=== PATIENT | female | born 1975 | race Caucasian/White ===

== ENCOUNTER 2017-01-27 04:16 | Emergency (ER) | payer OTHER ==
[2017-01-27 04:42] VITALS: BMI 29.9
[2017-01-27] MEDS ORDERED: SODIUM CHLORIDE 1,000 ML IV STA ×2 (04:46→06:40)
[2017-01-27] MEDS ORDERED: ONDANSETRON 4 MG/2 ML VIAL IVPUSH ONE (04:46)
--- NOTE | 2017-01-27 05:01 | PDOC ---
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 Patient states around 7pm last night, she was feeling depressed and took an unknown amount of Lamictal 25mg. Pharmacy ([facility]) contacted; 30 tabs of Lamictal dispense as well as Latuda 20mg and Seroquel 100mg. Patient reports having a history of suicidal ideations/attempts in past. She denies any other complaints at this time. LNMP: January 22. Timing/Duration: yesterday Episode Description: See HPI Associated Symptoms: anxiety, ingestion, suicidal ideation, other (Depression) Past History - Past Medical History Allergies/Adverse Reactions: Allergies No Known Allergies Allergy (Verified 01/27/17 04:42) Home Medications: Ambulatory Orders No Home Medications 0 dose .ROUTE UTDICT 08/20/12 Ibuprofen [Motrin] 800 mg PO TID #30 tablet 09/15/15 Sulfamethoxazole/Trimethoprim [Bactrim *Ds*] 1 tab PO BID #20 tablet 09/15/15 - Immunization History Immunization Up to Date: Yes Tetanus Status: Less than 5 years - Social History Smoking History: Yes Smoking Status: Never smoked Number of Cigarettes Per Day: 10 *Review of Systems - Review of Systems Able to Perform ROS?: Yes Constitutional: No: Chills, Fever Cardiac (ROS): No: Chest Pain, Lightheadedness, Palpitations, Syncope, Chest Tightness ABD/GI: No: Abdominal Distended, Constipated, Diarrhea, Nausea, Poor Appetite, Poor Fluid Intake, Vomiting, Indigestion, Abdominal cramping : No: Burning, Dysuria, Flank Pain, Hematuria, Pain Musculoskeletal: No: Back Pain Integumentary: No: Bruising, Erythema Neurological: No: Headache, Numbness, Seizure, Tingling, Tremors, Weakness, Ataxia, Dizziness Psychiatric: Yes: Anxiety, Depression, Frequent Crying, Other (Suicidal Ideation , Intentional ingestion) All Other Systems: Reviewed and Negative *Physical Exam - Vital Signs Last Vital Signs Temp Pulse Resp BP Pulse Ox 110 H 18 108/98 100 01/27/17 04:39 01/27/17 04:39 01/27/17 04:39 01/27/17 04:39 - Physical Exam General Appearance: Yes: Nourished, Appropriately Dressed. No: Apparent Distress, Mild Distress, Moderate Distress, Severe Distress Neck: positive: Trachea midline, Normal Thyroid, Supple. negative: Rigid, Decreased range of motion, Stridor, Lymphadenopathy (R), Lymphadenopathy (L) Respiratory/Chest: positive: Lungs Clear, Normal Breath Sounds. negative: Chest Tender, Respiratory Distress, Accessory Muscle Use, Labored Respiration, Rapid RR, Crackles, Rales, Stridor, Wheezing Cardiovascular: positive: Regular Rhythm, Regular Rate Gastrointestinal/Abdominal: positive: Normal Bowel Sounds, Soft. negative: Tender, Decreased BS, Distended, Guarding, Rebound, Tenderness Musculoskeletal: positive: Normal Inspection. negative: CVA Tenderness Extremity: positive: Normal Capillary Refill, Normal Inspection, Normal Range of Motion. negative: Tender, Pedal Edema, Swelling, Calf Tenderness, Erythema, Inflammation Integumentary: positive: Normal Color, Dry, Warm Neurologic: positive: outcomes analyst II-XII NML intact, Fully Oriented, Alert, Normal Mood/ Affect, Normal Response, Motor Strength 5/5 Plan - Order(s) Order(s): Orders last 12 hours Category Date Time Status ELECTROCARDIOGRAM [CARD] Stat Cardiology 01/27/17 04:46 Ordered ACTIVATED PTT Stat Lab 01/27/17 04:46 Ordered CBC WITH DIFFERENTIAL Stat Lab 01/27/17 04:46 Ordered DRUG SCREEN,UR ER- [facility] Stat Lab 01/27/17 04:46 Ordered HCG,QUALITATIVE URINE Stat Lab 01/27/17 04:46 Ordered PT/INR (PROTHROMBIN TIME) Stat Lab 01/27/17 04:46 Ordered URINALYSIS Stat Lab 01/27/17 04:46 Ordered Medical Decision Making - Medical Decision Making 01/27/17 05:01 Poison Control Contacted: Monitor for Q-T prolongation. Lamictal is a benign drug. If patient labs WNL, she can be cleared for evaluation.
[2017-01-27] MEDS ORDERED: ONDANSETRON 4 MG/2 ML VIAL ONE (05:04)
[2017-01-27 05:06] LABS: BASOPHIL 0.5 % (0-2.0); EOSINOPHIL 2.7 % (0-4.5); MCH 26.2 pg (25.7-33.7); MCHC 32.7 g/dl (32.0-36.0); MEAN CELL VOLUME 80.1 fl (80-96); MEAN PLT VOLUME 8.6 fl (7.5-11.1); NEUTROPHILS 60.7 % (42.8-82.8); PLATELET COUNT 284 K/MM3 (134-434); RDW 14.5 % (11.6-15.6); WHITE BLOOD COUNT 6.6 K/mm3 (4.0-10.0)
[2017-01-27 05:30] LABS: ALBUMIN 3.8 g/dl (3.4-5.0); ANION GAP 9 (8-16); BILIRUBIN,TOTAL 0.2 mg/dL (0.2-1.0); CALCIUM 8.7 mg/dL (8.5-10.1); CO2 23 mmol/L (21-32); CREATININE 0.8 mg/dL (0.55-1.02); GLUCOSE,RANDOM 110 mg/dL (74-106); MAGNESIUM 2.1 mg/dL (1.8-2.4); SGOT/AST 25 U/L (15-37); SGPT/ALT 24 U/L (12-78); TOT PROT 7.8 g/dl (6.4-8.2)
[2017-01-27 05:39] LABS: ALK PHOS 84 U/L (45-117); THYROID STIMULATING HORMONE 4.75 uIU/ml (0.358-3.74); TROPONIN I < 0.02 ng/ml (0.00-0.05)
[2017-01-27 06:06] LABS: INR 1.05 (0.82-1.09); PROTHROMBIN TIME (PATIENT) 11.6 SEC (9.98-11.88)
[2017-01-27 06:27] LABS: SALICYLATE < 4.0 mg/dl (0.0-30.0)
--- NOTE | 2017-01-27 07:29 | PDOC ---
*Physical Exam - Vital Signs Last Vital Signs Temp Pulse Resp BP Pulse Ox 97.7 F 92 H 18 107/71 100 01/27/17 04:21 01/27/17 06:33 01/27/17 06:33 01/27/17 06:33 01/27/17 06:33 ED Treatment Course - LABORATORY CBC & Chemistry Diagram: 01/27/17 04:50 01/27/17 04:50 - ADDITIONAL ORDERS Additional order review: Laboratory Results 01/27/17 01/27/17 01/27/17 04:50 04:50 04:50 INR 1.05 PTT (Actin FS) Sodium Potassium Chloride Carbon Dioxide Anion Gap BUN Creatinine Creat Clearance w eGFR Random Glucose Lactic Acid 2.2 H* Calcium Magnesium Total Bilirubin AST ALT Alkaline Phosphatase Creatine Kinase Creatine Kinase Index CK-MB (CK-2) Troponin I Total Protein Albumin TSH Salicylates < 4.0 Acetaminophen < 11.0 01/27/17 01/27/17 04:50 04:50 INR PTT (Actin FS) 29.1 Sodium 140 Potassium 4.0 Chloride 108 H Carbon Dioxide 23 Anion Gap 9 BUN 7 Creatinine 0.8 D Creat Clearance w eGFR > 60 Random Glucose 110 H Lactic Acid Calcium 8.7 Magnesium 2.1 Total Bilirubin 0.2 D AST 25 D ALT 24 D Alkaline Phosphatase 84 Creatine Kinase 160 Creatine Kinase Index 1.3 CK-MB (CK-2) 2.041 Troponin I < 0.02 Total Protein 7.8 Albumin 3.8 TSH 4.75 H Salicylates Acetaminophen 01/27/17 04:50 RBC 4.71 MCV 80.1 MCHC 32.7 RDW 14.5 MPV 8.6 Neutrophils % 60.7 Lymphocytes % 30.0 Monocytes % 6.1 Eosinophils % 2.7 Basophils % 0.5 - Medications Given in the ED: ED Medications Discontinued Medications Generic Name Dose Route Start Last Admin Trade Name Freq PRN Reason Stop Dose Admin Sodium Chloride 1,000 mls @ 1,000 mls/hr 01/27/17 04:46 01/27/17 05:01 Normal Saline - IV 01/27/17 05:45 1,000 mls/hr ASDIR STA Administration Ondansetron HCl 4 mg 01/27/17 04:46 01/27/17 05:06 Zofran Injection IVPUSH 01/27/17 04:47 4 mg ONCE ONE Administration Medical Decision Making - Medical Decision Making 01/27/17 09:24 Signout received from PIPPA Barreto. Briefly, this is a 41 year old female with a history of anxiety/depression on Lamictal/Seroquel/Latuda who presented with suicidal ideation and reported taking an unknown quantity of Lamictal at home. Per Poison Control, no interventions are needed apart from checking electrolytes and QTc. Workup so far is notable for: -EKG: NSR with QTc 447 (normal range for women) -Lactic acid mildly elevated at 2.2- fluids given, will repeat -Psych evaluation is pending Patient is on 1:1 observation. 01/27/17 14:53 Patient alert, oriented, tolerating PO. Offers no complaints. Seen by psychiatry and cleared for discharge. Plans to follow up with psychiatrist at [facility] [place] tomorrow. Return precautions reviewed. *DC/Admit/Observation/Transfer Diagnosis at time of Disposition: Drug overdose Qualifiers: Encounter type: initial encounter Injury intent: intentional self-harm Qualified Code(s): T50.902A - Poisoning by unspecified drugs, medicaments and biological substances, intentional self-harm, initial encounter - Discharge Dispostion Disposition: HOME Condition at time of disposition: Stable Admit: No - Referrals Referrals: Gianni Clement MD [Primary Care Provider] - - Patient Instructions Printed Discharge Instructions: DI for Drug Overdose in Adults Additional Instructions: Follow up with your psychiatrist tomorrow as discussed. Return here for suicidal thoughts or any other concerning symptoms.
--- NOTE | 2017-01-27 09:12 | EKG ---
Test Reason : Blood Pressure : / mmHG Vent. Rate : 095 BPM Atrial Rate : 095 BPM P-R Int : 176 ms QRS Dur : 086 ms QT Int : 356 ms P-R-T Axes : 055 069 036 degrees QTc Int : 447 ms NORMAL SINUS RHYTHM NORMAL ECG WHEN COMPARED WITH ECG OF 20-AUG-2012 13:57, NO SIGNIFICANT CHANGE WAS FOUND Confirmed by JACKSON CASTELLANOS MD ([id number]) on 01/27/2017 9:11:48 AM Referred By: Confirmed By:JACKSON CASTELLANOS MD
[2017-01-27 11:29] LABS: URINE APPEARANCE CLEAR; URINE BILIRUBIN NEGATIVE (NEGATIVE); URINE BLOOD NEGATIVE (NEGATIVE); URINE COLOR LTYELLOW; URINE GLUCOSE (UA) NEGATIVE (NEGATIVE); URINE KETONE TRACE (NEGATIVE); URINE LEUK ESTERASE NEGATIVE (NEGATIVE); URINE NITRITE NEGATIVE (NEGATIVE); URINE PROTEIN NEGATIVE (NEGATIVE); URINE UROBILINOGEN NEGATIVE mg/dL (0.2-1.0)
[2017-01-27] MEDS ORDERED: ACETAMINOPHEN 325 MG TABLET (FP) ONE (11:45)
[2017-01-27 11:52] LABS: URINE MARIJUANA THC NEGATIVE ng/ml (CUTOFF=50)
--- NOTE | 2017-01-27 14:51 | CON.PSY ---
Psychiatry Consult Chief Complaint: I was feeling bad but I am ok now. I wany to see my doctor tomorrow at [facility]. - Previous Psychiatric Treatment Outpatient: Less than 6 mos ago Inpatient: Within the last 12 months - Previous Substance Abuse Treatment Outpatient: None Inpatient: None - Reason for Previous Treatment Reason for Previous Treatment: Major Depression - Allergies Allergies: Allergies Allergy/AdvReac Type Severity Reaction Status Date / Time No Known Allergies Allergy Verified 01/27/17 04:42 - Current Living Status Usual Living Arrangement: With Child - Current Mental Status Evaluation Appearance: Well Groomed Attitude: Cooperative - Affect Affect: Constrictive Appropriateness: Appropriate to Content - Mood Mood: Anxious - Speech/Language Expressive: Coherent Receptive: Age Appropriate Comprehension of Spoken Words - Psychomotor Activity Psychomotor Activity: Slowed - Thought Process Thought Process: Intact - Thought Content Hallucinations: Absent Delusions: Absent - Self Perception Self Perception: No Impairment - Cognition Attention: Alert Orientation: Time Memory, Immediate Recall: Intact Memory, Short Term: 3/3 Memory, Remote with Promptin/3 - Concentration Serial Sevens Intact: No Simple Calculations Intact: No - Abstraction Proverb Interpretation: Intact Judgement: Minimally Impaired - Insight Insight: Intact - Impulse Control Impulse Control: Minimally Impaired - Suicidal Ideation Suicidal Ideation: Yes Plan: No plans now, actually feels 0k now. - Homicidal Ideation Homicidal Ideation: No Assessment/Plan 12) Patient no longer is acutely suicidal at tyhis time. 2) Discharge when medical;ly stable. 3) Followe up at [email or web address] on 01/28.
[2017-01-27 15:08] VITALS: BP 110/74; PULSE 80; TEMP 98.6
== END 2017-01-27 15:03 | disposition home or self-care (01) ==
LOC: JER 04:16
DX: T42.6X2A Poisoning by other antiepileptic and sedative-hypnotic drugs, intentional self-harm, initial encounter (principal); Y92.038 Other place in apartment as the place of occurrence of the external cause; F41.8 Other specified anxiety disorders
CPT/HCPCS: 36415; 80053; 80307; 81003; 82550; 82553; 83605; 83735; 84443; 84484; 84703; 85025; 85610; 85730; 87086; 93005; 93010; 99284-25

== ENCOUNTER 2018-04-21 22:26 | Emergency (ER) | payer SELFPAY ==
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
[2018-04-21 22:57] VITALS: TEMP 98.1; BMI 26.6
[2018-04-21] MEDS ORDERED: SODIUM CHLORIDE 1,000 ML IV STA (23:05)
[2018-04-21] MEDS ORDERED: DIPHTH,PERTUSS(ACELL),TET 0.5 ML DISP.SYRIN IM ONE (23:08)
[2018-04-21] MEDS ORDERED: BACITRACIN 15 GM TUBE TOPICAL OINTMENT TP ONE (23:22)
[2018-04-21] MEDS ORDERED: BACITRACIN 0.9 GM PACKET ONE (23:59)
[2018-04-22 01:29] LABS: HEMATOCRIT 36.3 % (32.4-45.2); HEMOGLOBIN 11.4 GM/dL (10.7-15.3); MCH 23.6 pg (25.7-33.7); MCHC 31.5 g/dl (32.0-36.0); MEAN CELL VOLUME 74.9 fl (80-96); MEAN PLT VOLUME 8.7 fl (7.5-11.1); PLATELET COUNT 369 K/MM3 (134-434); RBC 4.85 M/mm3 (3.60-5.2); RDW 15.2 % (11.6-15.6); WHITE BLOOD COUNT 6.3 K/mm3 (4.0-10.0)
[2018-04-22 01:54] LABS: ALBUMIN 3.8 g/dl (3.4-5.0); ALK PHOS 62 U/L (45-117); ANION GAP 9 MMOL/L (8-16); BILIRUBIN,TOTAL 0.3 mg/dL (0.2-1); BLOOD UREA NITROGEN 6 mg/dL (7-18); CHLORIDE 112 mmol/L (98-107); CO2 22 mmol/L (21-32); CREATININE 0.6 mg/dL (0.55-1.3); GLUCOSE,RANDOM 102 mg/dL (74-106); POTASSIUM 4.4 mmol/L (3.5-5.1); SGOT/AST 14 U/L (15-37); SGPT/ALT 14 U/L (13-61); SODIUM 144 mmol/L (136-145); TOT PROT 7.9 g/dl (6.4-8.2)
[2018-04-22 06:48] VITALS: BP 118/72; PULSE 80
== END 2018-04-22 06:59 | disposition home or self-care (01) ==
LOC: JER 22:26
DX: S00.81XA Abrasion of other part of head, initial encounter (principal); W10.8XXA Fall (on) (from) other stairs and steps, initial encounter; Y93.89 Activity, other specified; Y92.89 Other specified places as the place of occurrence of the external cause; Y99.8 Other external cause status; Y04.2XXA Assault by strike against or bumped into by another person, initial encounter; F32.9 Major depressive disorder, single episode, unspecified
CPT/HCPCS: 36415; 70450-TC; 70486-TC; 72125-TC; 80053; 80307; 84703; 85027; 87389; 99282-25

== ENCOUNTER 2018-11-14 07:18 | Emergency (ER) | payer SELFPAY ==
[2018-11-14 07:34] VITALS: BMI 29.9
--- NOTE | 2018-11-14 08:01 | PDOC ---
History of Present Illness - General Chief Complaint: Psychiatric Stated Complaint: DEPRESSION Time Seen by Provider: 11/14/18 08:00 - History of Present Illness Initial Comments: 11/14/18 08:22 Patient is a 43 year old female with history of anxiety, depression presents with suicidal ideation. She says that she is: "sad, and scared that she will do something bad". She currently admits suicidal ideation (patient does not describe plan), denies homicidal ideation. Symptoms have been worsening over the past three months. Patient states that she stopped taking her psychiatric medications one year ago as they were not working for her (does not recall the name of her past medications; but per chart review she was taking Lamictal, Seroquel, Latuda in 2017). She endorses that she last saw her psychiatrist two years ago (does not recall name of psychiatrist). Patient admits that she is amenable to therapy, and repeatedly requests "medications". Admits drinking four glasses of wine yesterday. Denies illicit drug use. She denies subjective fevers, chills, shortness of breath, chest pain, palpitations, abdominal pain, nausea, vomiting, dysuria, hematuria, melena, hematochezia. PMH: depression, anxiety PSH: denies Social history: smokes 10 [place] cigarettes/ day for past two years. Admits last alcoholic drink yesterday (does not endorse regular ETOH use). Denies illicit drug use. 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 Past History - Travel Traveled outside of the country in the last 30 days: No - Past Medical History Allergies/Adverse Reactions: Allergies Allergy/AdvReac Type Severity Reaction Status Date / Time No Known Allergies Allergy Verified 11/14/18 07:21 Home Medications: Ambulatory Orders Unobtainable 04/22/18 Anemia: Yes COPD: No Psychiatric Problems: Yes (depression) - Immunization History Immunization Up to Date: Yes - Suicide/Smoking/Psychosocial Hx Smoking Status: Yes Smoking History: Current every day smoker Have you smoked in the past 12 months: Yes Number of Cigarettes Smoked Daily: 10 Information on smoking cessation initiated: No Hx Alcohol Use: Yes Drug/Substance Use Hx: No Substance Use Type: None Review of Systems - Review of Systems Able to Perform ROS?: Yes Constitutional: Yes: Malaise, Weakness HEENTM: Yes: Tearing. No: Throat Pain, Throat Swelling Respiratory: No: Cough, Shortness of Breath, Stridor, Wheezing Cardiac (ROS): No: Chest Pain, Palpitations ABD/GI: No: Blood Streaked Bowels, Nausea, Vomiting : No: Dysuria, Discharge, Hematuria Musculoskeletal: Yes: Muscle Weakness Neurological: Yes: Headache Psychiatric: Yes: Anxiety, Depression, Other (admits suicidal ideation) *Physical Exam - Vital Signs Last Vital Signs Temp Pulse Resp BP Pulse Ox 98.1 F 95 H 16 122/86 100 11/14/18 07:21 11/14/18 07:21 11/14/18 07:21 11/14/18 07:21 11/14/18 07:21 - Physical Exam General Appearance: Yes: Nourished, Disheveled, Mild Distress HEENT: positive: EOMI, BRENNON. negative: Scleral Icterus (R), Scleral Icterus (L) , Pharyngeal Erythema, Tonsillar Exudate Neck: positive: Trachea midline, Supple. negative: Lymphadenopathy (R), Lymphadenopathy (L), Thyromegaly Respiratory/Chest: positive: Lungs Clear, Normal Breath Sounds. negative: Respiratory Distress, Accessory Muscle Use, Crackles, Rhonchi, Stridor, Wheezing Cardiovascular: positive: Regular Rhythm, Regular Rate, S1, S2. negative: Edema , Murmur Gastrointestinal/Abdominal: positive: Normal Bowel Sounds, Flat, Soft. negative : Organomegaly, Rebound, Tenderness Extremity: positive: Normal Range of Motion Neurologic: positive: Alert, Responsive (slow t orespond), Depressed Affect ED Treatment Course - LABORATORY CBC & Chemistry Diagram: 11/14/18 09:56 11/14/18 09:56 Medical Decision Making - Medical Decision Making 11/14/18 09:22 Patient is 43 year old female with history of depression, presenting with suicidal ideation. 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 Rangel Per RN patient endorses questionable head trauma; denies trauma to any part of her body. No loss of consciousness. Will obtain noncontrast CT head. Second call placed to Dr. Rangel 10:30 AM 11/14/18 11:13 CT head negative for acute intracranial pathology. EKG shows normal sinus rhythm at 83BPM. QTc 455msec. Utox negative. Blood alcohol 164. Patient clinically sober. Patient CIWA currently 0-1; resting comfortably in exam bed. Will monitor closely for signs of withdrawal, initiate Librium protocol if CIWA rising. Third call placed to Dr. Rangel 11:30 AM 11/14/18 12:20 Call returned; Case discussed with Dr. Rangel who will evaluate the patient 11/14/18 14:07 Dr. Rangel evaluated the patient. Patient cleared for discharge home, with psychiatry follow up. Contact information provided to patient. 11/14/18 14:18 Discussed follow up recommendations with patient at bedside who verbalizes understanding and agreement with the plan. All questions, concerns addressed and answered. *DC/Admit/Observation/Transfer Diagnosis at time of Disposition: MDD (major depressive disorder) - Discharge Dispostion Disposition: HOME Condition at time of disposition: Stable Decision to Admit order: No - Referrals Referrals: Nagi Evans MD [Primary Care Provider] - - Patient Instructions Printed Discharge Instructions: DI for Depression -- Adult Additional Instructions: You were seen in the Emergency Department for complaint of depression, You were evaluated by the psychiatrist, and are cleared for discharge home. It is important that you follow up with your primary care physician, and psychiatrist upon discharge. You may follow up with mental health professionals at: [address] [address] [email or web address] Return to the nearest Emergency Department of you experience worsening symptoms or any suicidal, homicidal ideation, hallucinations, paranoia, delusions, or any intrusive thoughts. Print Language: ITALIAN - Post Discharge Activity Forms/Work/School Notes: My Personal Safety Plan
--- NOTE | 2018-11-14 08:35 | PDOC ---
Attending Attestation - Resident Resident Name: Ryan Sexton - ED Attending Attestation I have performed the following: I have examined & evaluated the patient, The case was reviewed & discussed with the resident, I agree w/resident's findings & plan - [facility] HPI: 11/14/18 09:29 Patient is a 43 year old female with history of anxiety, depression presents with worsening depression and sadness x 3 months, now with suicidal ideation. She states that she is: "sad, and scared that she will do something bad". Of note, she banged her head repeatedly this morning. Patient endorses that she has not been taking her psychiatric medications for the past year. Lamictal/Seroquel/Latuda Not seen psych or PMD x 2 years; she admits to drinking 4 cups of wine today, but denies coingestants of OTC meds.. - Physicial Exam PE: 11/14/18 09:29 Agree with the resident's HPI and PE as documented in the electronic medical record. NAD, well appearing, PERRL, EOMI, MMM, nl conjunctiva, anicteric; neck supple. lungs clear, RRR, abdomen soft nontender. NOGUEIRA x4, no focal neuro deficits. No peripheral edema. normal color for ethnicity, WWP. +blunted affect and mood +SI, +depressed. - Medical Decision Making 11/14/18 08:34 See HPI for details Vital signs reviewed, wnl. Prior notes reviewed, including admissions, discharges and consultations. laboratory results and imaging reviewed, basic labs and lytes wnl UA_neg tox screen, neg preg test. +etoh, but clinically sober EKG normal sinus rhythm, no interval abnormalities, narrow QRS, ST and T wave segments and morphology normal. 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 ED course - 1:1 observation. - incident report for SI/depression; no tox ingestants, acute on chronic presentation. - awaiting psych cs, Dr Ranegl control officer will come to evaluate - ED observation in the meantime. - Dr Rangel came to eval pt at 1400: dc'd on 1:1, can be followed up as outpatient for her depression, referral for mental health clinic in region given cleared from psych standpoint, no acute SI or acute psych emergency. referral given and safety plan. 11/14/18 14:18 Heart Score/ECG Review #1 ECG reviewed & interpreted by me at: 08:55 General ECG Interpretation: Sinus Rhythm, Normal Rate, Normal Intervals Compared to previous ECG there are: No significant change 11/14/18 09:34 EKG normal sinus rhythm, no interval abnormalities, narrow QRS, ST and T wave segments and morphology normal.
[2018-11-14 09:47] LABS: URINE AMPHETAMINES NEGATIVE ng/ml (CUTOFF=500)
[2018-11-14 09:48] LABS: COCAINE, UR NEGATIVE ng/ml (CUTOFF=300); METHADONE, UR NEGATIVE ng/ml (CUTOFF=300); OPIATES, URI NEGATIVE ng/ml (CUTOFF=300); PHENCYCLIDINE,URINE NEGATIVE ng/ml (CUTOFF=25); URINE BARBITURATES NEGATIVE ng/ml (CUTOFF=200); URINE BENZODIAZEPINES NEGATIVE ng/ml (CUTOFF=200)
[2018-11-14 09:52] LABS: HCG,QUALITATIVE URINE Negative
[2018-11-14 10:08] LABS: HEMATOCRIT 32.7 % (32.4-45.2); HEMOGLOBIN 10.6 GM/dL (10.7-15.3); MCH 24.9 pg (25.7-33.7); MCHC 32.5 g/dl (32.0-36.0); MEAN CELL VOLUME 76.6 fl (80-96); MEAN PLT VOLUME 8.2 fl (7.5-11.1); PLATELET COUNT 284 K/MM3 (134-434); RBC 4.27 M/mm3 (3.60-5.2); RDW 15.8 % (11.6-15.6)
[2018-11-14 10:23] LABS: URINE APPEARANCE Clear; URINE BILIRUBIN Negative (NEGATIVE); URINE COLOR Yellow; URINE GLUCOSE (UA) Negative (NEGATIVE); URINE KETONE Negative (NEGATIVE); URINE LEUK ESTERASE Negative (NEGATIVE); URINE NITRITE Negative (NEGATIVE); URINE PROTEIN Negative (NEGATIVE); URINE UROBILINOGEN 0.2 mg/dL (0.2-1.0)
[2018-11-14 10:36] LABS: ALBUMIN 3.2 g/dl (3.4-5.0); BILIRUBIN,TOTAL 0.2 mg/dL (0.2-1); CALCIUM 8.4 mg/dL (8.5-10.1); CREATININE 0.5 mg/dL (0.55-1.3); TOT PROT 6.5 g/dl (6.4-8.2)
--- NOTE | 2018-11-14 11:40 | EKG ---
Test Reason : Blood Pressure : / mmHG Vent. Rate : 083 BPM Atrial Rate : 083 BPM P-R Int : 174 ms QRS Dur : 086 ms QT Int : 388 ms P-R-T Axes : 049 059 033 degrees QTc Int : 455 ms NORMAL SINUS RHYTHM NORMAL ECG WHEN COMPARED WITH ECG OF 27-JAN-2017 04:46, NO SIGNIFICANT CHANGE WAS FOUND Confirmed by JACKSON CASTELLANOS MD ([id number]) on 11/14/2018 11:40:05 AM Referred By: Confirmed By:JACKSON CASTELLANOS MD
--- NOTE | 2018-11-14 14:10 | CON.PSY ---
Psychiatry Consult Chief Complaint: 43 Year old female who lived with Mother came to [place] . reports feeling depressed and has been drinking and felt afraid of doing some thing that might hurt her. Patient sobered up and denies any suicidal ide4as or plans at this time. She wants to go to a clinic in [facility]. Has been going to [facility] but does not like the clinic. Symptoms: reports: Depressed Mood - Previous Psychiatric Treatment Outpatient: More than 6 mos ago Inpatient: None - Previous Substance Abuse Treatment Outpatient: None Inpatient: None - Reason for Previous Treatment Reason for Previous Treatment: Major Depression - Allergies Allergies: Allergies Allergy/AdvReac Type Severity Reaction Status Date / Time No Known Allergies Allergy Verified 11/14/18 07:21 - Current Living Status Usual Living Arrangement: With Parent - Current Mental Status Evaluation Appearance: Well Groomed Attitude: Cooperative - Affect Affect: Constrictive Appropriateness: Not Appropriate - Mood Mood: Anxious - Speech/Language Expressive: Coherent - Psychomotor Activity Psychomotor Activity: Normal - Thought Process Thought Process: Intact - Thought Content Hallucinations: Absent Delusions: Absent - Self Perception Self Perception: No Impairment - Cognition Attention: Alert Orientation: Time Memory, Immediate Recall: Intact Memory, Short Term: 3/3 Memory, Remote with Promptin/3 - Concentration Serial Sevens Intact: No Simple Calculations Intact: Yes - Abstraction Proverb Interpretation: Intact Judgement: Minimally Impaired - Insight Insight: Intact - Impulse Control Impulse Control: Minimally Impaired - Suicidal Ideation Suicidal Ideation: No - Homicidal Ideation Homicidal Ideation: No Assessment/Plan 1) d/c 1:1. 2) Discharge [facility] when stable, 3) refer to Mental clinics in [place]. PaTIENT WILL CALL.
[2018-11-14 14:36] VITALS: BP 112/74; PULSE 81; TEMP 97.9
== END 2018-11-14 14:40 | disposition home or self-care (01) ==
LOC: JER 07:18
DX: F32.9 Major depressive disorder, single episode, unspecified (principal); F17.210 Nicotine dependence, cigarettes, uncomplicated; D64.9 Anemia, unspecified
CPT/HCPCS: 36415; 70450-TC; 80053; 80307; 81003; 84703; 85027; 93005; 93010; 99284-25

== ENCOUNTER 2020-04-20 13:02 | Emergency (ER) | payer OTHER ==
[2020-04-20 13:32] VITALS: BP 124/77; PULSE 86; TEMP 98.4; BMI 29.9
--- OUTSIDE RECORDS SUMMARY | 2020-04-20 13:46 | XMS ---
:1975 Author Organization [facility] Support Name Relationship Address Phone EDDIE HANKS [address] [place] [address] UE Unavailable Unavailable Unavailable EMANUEL HANKS MOTHER [address] [place] [address] Re-disclosure Warning The records that you are about to access may contain information from federally- assisted alcohol or drug abuse programs. If such information is present, then the following federally mandated warning applies: This information has been disclosed to you from records protected by federal confidentiality rules (42 CFR part 2). The federal rules prohibit you from making any further disclosure of this information unless further disclosure is expressly permitted by the written consent of the person to whom it pertains or as otherwise permitted by 42 CFR part 2. A general authorization for the release of medical or other information is NOT sufficient for this purpose. The Federal rules restrict any use of the information to criminally investigate or prosecute any alcohol or drug abuse patient.The records that you are about to access may contain highly sensitive health information, the redisclosure of which is protected by Article 27-F of the [facility] Public Health law. If you continue you may haveaccess to information: Regarding HIV / AIDS; Provided by facilities licensed or operated by the [facility] Office of Mental Health; or Provided by the [facility] Office for People With Developmental Disabilities. If such information is present, then the following [facility] mandated warning applies: This information has been disclosed to you from confidential records which are protected by state law. State law prohibits you from making any further disclosure of this information without the specific written consent of the person to whom it pertains, or as otherwise permitted by law. Any unauthorized further disclosure in violation of state law may result in a fine or senior living sentence or both. A general authorization for the release of medical or other information is NOT sufficient authorization for further disclosure. Insurance Providers Payer name Policy type Policy ID Covered Covered republican's Policy P vivian / Coverage republican ID relationship to [employer] type [facility] [id number] SP [id number] C SELF PAY SP INSURANCE MEDICAID [id number] SP [id number] Dental [id number] S [id number] 200 [employer] [facility] Myron Vision [id number] S [id number] [facility] Medicaid [id number] S [id number] Regular Clinic Visit [facility] [id number] S [id number] [place] Medicaid
--- NOTE | 2020-04-20 14:38 | PDOC ---
History of Present Illness - General Chief Complaint: Vaginal Sxs Stated Complaint: BLOOD IN URINE Time Seen by Provider: 04/20/20 14:04 History Source: Patient Exam Limitations: Clinical Condition - History of Present Illness Travel History: No Initial Comments: 04/20/20 14:40 Patient with no significant past medical history present with complaint of 1 week history of feeling of ball in the right side of her vagina. Patient currently on her menstrual period started 4 days ago. Patient have an appointment with her LEASING PROPERTY MANAGER in 4 days. Denies any other symptoms Timing/Duration: reports: other (1 week) Past History - Medical History Allergies/Adverse Reactions: Allergies Allergy/AdvReac Type Severity Reaction Status Date / Time No Known Allergies Allergy Verified 04/20/20 13:30 Home Medications: Ambulatory Orders Ibuprofen 800 mg PO Q8H PRN #16 tablet 04/20/20 Mupirocin Ointment [Bactroban 2% Ointment -] 1 applic TP BID #1 tube 04/20/20 Sulfamethoxazole/Trimethoprim [Bactrim Ds -] 1 tab PO BID #14 tablet 04/20/20 Anemia: Yes COPD: No Psychiatric Problems: Yes (depression) - Reproductive History Is Patient Now?: No - Immunization History Immunization Up to Date: Yes - Psycho-Social/Smoking History Smoking Status: Yes Smoking History: Current every day smoker Have you smoked in the past 12 months: Yes Number of Cigarettes Smoked Daily: 20 Information on smoking cessation initiated: No - Substance Abuse Hx (Audit-C & DAST Scrn) How often the patient has a drink containing alcohol: Monthly or less Score: In Men: 4 or > Positive; In Women: 3 or > Positive: 1 Screen Result (Pos requires Nsg. Audit-10AR): Negative In the last yr the pt used illegal drug/Rx for NonMed reason: No Score: Yes response is considered Positive: 0 Screen Result (Positive result requires Nsg. DAST-10): Negative Review of Systems - Review of Systems Able to Perform ROS?: Yes Is the patient limited Korean proficient: No Constitutional: No: Chills, Fever, Malaise HEENTM: No: Symptoms Reported Respiratory: No: Symptoms reported Cardiac (ROS): No: Symptoms Reported ABD/GI: No: Symptoms Reported, Abdominal cramping : Yes: Symptoms Reported, See HPI, Other (vulva abscess). No: Burning, Dysuria, Discharge, Frequency Musculoskeletal: No: Symptoms Reported Integumentary: Yes: Symptoms Reported, Lumps (right side vulva abscess) Neurological: Yes: Symptoms reported All Other Systems: Reviewed and Negative *Physical Exam - Vital Signs Last Vital Signs Temp Pulse Resp BP Pulse Ox 98.4 F 86 18 124/77 100 04/20/20 13:30 04/20/20 13:30 04/20/20 13:30 04/20/20 13:30 04/20/20 13:30 - Physical Exam General Appearance: Yes: Nourished, Appropriately Dressed. No: Apparent Distress HEENT: positive: Normal ENT Inspection Neck: negative: Supple Respiratory/Chest: negative: Respiratory Distress, Accessory Muscle Use Female Pelvic Exam: positive: normal external exam, normal adnexa, vaginal bleeding, other (2 cm hard nonfluctuant abscess to right side of vulvar over labia majora with mild surrounding erythema of area of shaved skin. Small amount of dark blood in the vaginal vault consistent with menstrual period). negative: adnexal tenderness Gastrointestinal/Abdominal: positive: Normal Bowel Sounds, Flat. negative: Tender Musculoskeletal: positive: Normal Inspection Extremity: positive: Normal Inspection, Normal Range of Motion Integumentary: positive: Normal Color Neurologic: positive: Fully Oriented, Alert, Normal Mood/Affect, Normal Response, Motor Strength 5/5 Medical Decision Making - Medical Decision Making 04/20/20 14:41 Patient with no significant past medical history present with complaint of 1 week history of feeling of ball in the right side of her vagina. Patient currently on her menstrual period started 4 days ago. Patient have an appointment with her LEASING PROPERTY MANAGER in 4 days. Denies any other symptoms Exam significant for 2 cm hard nonfluctuant abscess to right side of vulvar over labia majora with mild surrounding erythema of area of shaved skin. Small amount of dark blood in the vaginal vault consistent with menstrual period. Patient in no acute distress. Discussed with patient abscess is not ready to be drained. Stable for discharge on Bactrim antibiotics p.o. and mupirocin topical cream for labial abscess with advised to do hot compresses and follow-up with LEASING PROPERTY MANAGER as scheduled Discharge - Discharge Information Problems reviewed: Yes Clinical Impression/Diagnosis: Vulvar abscess Condition: Stable Disposition: HOME - Admission No - Additional Discharge Information Prescriptions: Sulfamethoxazole/Trimethoprim [Bactrim Ds -] 1 tab PO BID #14 tablet Mupirocin Ointment [Bactroban 2% Ointment -] 1 applic TP BID #1 tube Ibuprofen 800 mg PO Q8H PRN #16 tablet PRN Reason: pain - Follow up/Referral Referrals: Nagi Evans MD [Primary Care Provider] - - Patient Discharge Instructions Patient Printed Discharge Instructions: DI for Vulvar Abscess Additional Instructions: Your pain is likely caused by vulvar abscess. Take prescribed medication as prescribed for pain and antibiotics and finish it. Follow-up with your LEASING PROPERTY MANAGER as scheduled next week. Es probable que caraballo dolor sea causado por un absceso vulvar. [place] los medicamentos recetados segn lo prescrito para el dolor y los antibiticos y termnelos. Сергей un seguimiento con caraballo gineclogo segn lo programado la prxima semana. Print Language: IRISH - Post Discharge Activity
== END 2020-04-20 14:43 | disposition home or self-care (01) ==
LOC: JER 13:02
DX: N76.4 Abscess of vulva (principal)
CPT/HCPCS: 99282-25

== ENCOUNTER 2021-07-25 11:31 | Emergency (ER) | payer OTHER ==
[2021-07-25 11:36] VITALS: BP 120/78; PULSE 96; TEMP 98.7; BMI 33.3
== END 2021-07-25 13:15 | disposition home or self-care (01) ==
LOC: JERFT 11:31
DX: M53.3 Sacrococcygeal disorders, not elsewhere classified (principal)
CPT/HCPCS: 72220-TC-FY; 99284-25